=== PATIENT | female | born 1970 | race African-American/Black ===

== ENCOUNTER 2017-09-13 11:58 | Emergency (ER) | payer MEDICAID ==
[2017-09-13 13:45] LABS: BASOPHILS 0.2 % (0-2); EOSINOPHILS 1.4 % (0-7); HEMATOCRIT 39.8 % (36.0-48.0); HEMOGLOBIN 12.8 g/dL (12-16); IMMATURE GRANULOCYTES 0.2 % (0-5); LYMPHOCYTES 29.1 % (15-50); MCH 29.5 pg (26.0-34.0); MCHC 32.2 g/dL (31.0-37.0); MCV 91.7 fL (80.0-100.0); MEAN PLATELET VOLUME 9.6 fL (7.4-10.4); MONOCYTES 8.5 % (2-11); NEUTROPHILS 60.6 % (40-80); PLATELET COUNT 335 10x3/uL (130-400); RBC 4.34 10x6/uL (4.00-5.40); RDW 14.5 % (11.5-14.5); WBC 10.6 10x3/uL (4.8-10.8)
[2017-09-13 13:59] LABS: APPEARANCE CLEAR (CLEAR); BILIRUBIN NEGATIVE (NEGATIVE); COLOR YELLOW (YELLOW); GLUCOSE NEGATIVE (NEGATIVE); KETONE NEGATIVE (NEGATIVE); NITRITE NEGATIVE (NEGATIVE); PROTEIN NEGATIVE (NEGATIVE); UROBILINOGEN NORMAL (NORMAL)
[2017-09-13 14:04] LABS: ANION GAP 11.5 mmol/L (8-16); BILIRUBIN - TOTAL 0.22 mg/dL (0.2-1.3); CALCIUM 8.9 mg/dL (8.5-10.1); CARBON DIOXIDE 28.3 mmol/L (21.0-32.0); CREATININE - SERUM 0.9 mg/dL (0.6-1.3); POTASSIUM - SERUM 3.8 mmol/L (3.5-5.1); PROTEIN - SERUM 7.5 g/dL (6.4-8.2)
[2017-09-13 14:13] LABS: THYROID STIMULATING HORMONE 0.14 uIU/mL (0.36-3.74)
== END 2017-09-13 20:01 | disposition home or self-care (01) ==
LOC: EDBD 11:58 → D.ER 11:58
PROVIDERS: Physician Assistant
DX: R22.0 Localized swelling, mass and lump, head (principal); R42 Dizziness and giddiness; R51 Headache; R06.02 Shortness of breath; R94.6 Abnormal results of thyroid function studies; M54.5 Low back pain; R00.0 Tachycardia, unspecified